=== PATIENT | female | born 1955 | race Caucasian/White ===

== ENCOUNTER 2022-01-28 07:21 | Inpatient (IN) ==
[2022-01-28] MEDS ORDERED: *HR* HYDROcodone/Acet 5/325 mg TABLET PO ONE (08:04)
[2022-01-28 08:38] LABS: Basophils # 0.1 K/mcL (0.0-0.2); Basophils % 0.4 %; Eosinophils # 0.2 K/mcL (0.0-0.6); Eosinophils % 1.5 %; Hematocrit 29.8 % (35.3-44.9); Hemoglobin 9.8 g/dL (11.5-15.4); Immature Granulocytes % 0.4 % (0-4); Lymphocytes # 1.7 K/mcL (0.6-4.6); Lymphocytes % 12.1 %; Mean Corpuscular HGB Conc 32.9 g/dL (31.6-35.5); Mean Corpuscular Hemoglobin 24.8 pg (28.0-33.3); Mean Corpuscular Volume 75.4 fL (83.0-100.0); Mean Platelet Volume 10.2 fL (9.4-12.4); Monocytes # 1.4 K/mcL (0.0-1.3); Monocytes % 9.9 %; Neutrophils # 10.5 K/mcL (1.6-8.9); Platelet Count 244 K/mcL (140-400); Red Blood Count 3.95 M/mcL (3.82-4.97); Red Cell Distribution Width 15.6 % (11.5-14.5); Segmented Neutrophils % 75.7 %; White Blood Count 13.9 K/mcL (4.3-11.1)
[2022-01-28 08:58] LABS: Troponin I < 0.03 ng/mL (< 0.04)
[2022-01-28 09:00] LABS: Alanine Aminotransferase 6 Units/L (7-52); Albumin 2.9 g/dL (3.5-5.7); Albumin/Globulin Ratio 0.9 (1.1-2.2); Alkaline Phosphatase 87 Units/L (34-104); Aspartate Amino Transferase 7 Units/L (13-39); BUN/Creatinine Ratio 28 (6-26); Bilirubin,Total 0.6 mg/dL (0.3-1.0); Blood Urea Nitrogen 18 mg/dL (8-23); Carbon Dioxide 24 mEq/L (23-29); Chloride 92 mEq/L (98-107); Globulin 3.2 g/dL (2.4-3.5); Glucose 307 mg/dL (70-105); Osmolality,Calculated 277 (280-300); Potassium 4.2 mEq/L (3.5-5.1); Sodium 127 mEq/L (136-145); Total Protein 6.1 g/dL (6.4-8.9)
[2022-01-28 09:20] LABS: Bilirubin,Urine Negative (Negative); Blood,Urine Trace-intact (Negative); Clarity,Urine Turbid (Clear); Color,Urine Yellow (Yellow); Glucose,Urine (UA) Normal (Normal); Ketones,Urine 15 mg/dL (Negative); Leukocyte Esterase,Urine Large (Negative); Nitrite,Urine Positive (Negative); Protein,Urine 30 mg/dL (Neg-Trace); Urobilinogen,Urine Normal (Normal)
[2022-01-28 09:30] LABS: ABG Base Excess 0 mEq/L (-2 to 3); ABG HCO3 25 mEq/L (21-27); ABG Oxygen Saturation 81 % (95-98); ABG PCO2 40 mmHg (35-45); ABG PO2 45 mmHg (85-104); ABG TCO2 26 mEq/L (20-26)
[2022-01-28 09:34] LABS: Squamous Epithelial Cell,Urine Few per hpf (None-Few); WBC,Urine TNTC per hpf (0-3)
[2022-01-28 09:35] LABS: Bacteria,Urine Many per hpf (None-Few); Renal Epithelial Cells,Urine Moderate per hpf (None-Few)
[2022-01-28] MEDS ORDERED: cefTRIAXone 2,000 MG in 0.9 % Sodium Chloride Mini Bag 100 ML IVPB ONE (09:37)
[2022-01-28] MEDS ORDERED: 0.9 % Sodium Chloride 500 ML IVC ONE (09:37)
[2022-01-28] MEDS ORDERED: 0.9 % Sodium Chloride 1,000 ML IVC SCH (09:45)
[2022-01-28] MEDS ORDERED: Naloxone 0.4 MG/ML INJ IVP PRN (11:43)
[2022-01-28] MEDS ORDERED: D5% in Water 1,000 ML IVC PRN (11:45)
[2022-01-28] MEDS ORDERED: *HR* Dextrose 50 % in Water (Syg) 50 ML SYRINGE IVP PRN (11:45)
[2022-01-28] MEDS ORDERED: Dextrose Gel 15 GM/37.5 ML TUBE PO PRN ×2 (11:45)
[2022-01-28] MEDS: Azithromycin 500 MG in 0.9 % Sodium Chloride 250 ML IVPB SCH (13:11)
[2022-01-28] MEDS: Insulin LISPRO 300 UNITS/3 ML VIAL SUBQ SCH ×2 (16:39→21:17)
[2022-01-28] MEDS: valACYclovir 500 MG TABLET PO SCH ×2 (21:07→21:14)
[2022-01-28] MEDS ORDERED: Acetaminophen 325 MG TABLET PO ONE (21:24)
[2022-01-29 04:51] LABS: Basophils # 0.1 K/mcL (0.0-0.2); Basophils % 0.5 %; Hematocrit 33.2 % (35.3-44.9); Hemoglobin 10.5 g/dL (11.5-15.4); Lymphocytes # 1.8 K/mcL (0.6-4.6); Mean Corpuscular HGB Conc 31.6 g/dL (31.6-35.5); Mean Corpuscular Hemoglobin 24.4 pg (28.0-33.3); Mean Corpuscular Volume 77.2 fL (83.0-100.0); Mean Platelet Volume 10.5 fL (9.4-12.4); Monocytes # 1.1 K/mcL (0.0-1.3); Red Cell Distribution Width 15.8 % (11.5-14.5); White Blood Count 10.9 K/mcL (4.3-11.1)
[2022-01-29] MEDS: *HR* Enoxaparin 40 MG/0.4 ML SYRINGE SQ SCH (05:32)
[2022-01-29 05:48] LABS: Thyroid Stimulating Hormone 1.595 mcIU/mL (0.340-5.600)
[2022-01-29 07:24] LABS: Platelet Count 230 K/mcL (140-400)
[2022-01-29 07:53] LABS: Eosinophils # 0.3 K/mcL (0.0-0.6); Eosinophils % 2.7 %; Immature Granulocytes % 0.4 % (0-4); Lymphocytes % 16.9 %; Monocytes % 10.3 %; Segmented Neutrophils % 69.2 %
[2022-01-29 08:04] LABS: Neutrophils # 7.5 K/mcL (1.6-8.9)
[2022-01-29 08:32] LABS: Alanine Aminotransferase 8 Units/L (7-52); Albumin/Globulin Ratio 0.9 (1.1-2.2); Alkaline Phosphatase 110 Units/L (34-104); Aspartate Amino Transferase 13 Units/L (13-39); BUN/Creatinine Ratio 19 (6-26); Bilirubin,Total 0.4 mg/dL (0.3-1.0); Blood Urea Nitrogen 13 mg/dL (8-23); Calcium 8.3 mg/dL (8.6-10.3); Carbon Dioxide 20 mEq/L (23-29); Chloride 98 mEq/L (98-107); Chol/HDL Ratio 3.2 (0-4.9); Cholesterol 81 mg/dL (< 200); Globulin 3.3 g/dL (2.4-3.5); Glucose 235 mg/dL (70-105); HDL Cholesterol 25 mg/dL (40-59); LDL Cholesterol,Calculated 38 mg/dL (< 100); Magnesium 1.2 mg/dL (1.6-2.6); Osmolality,Calculated 284 (280-300); Potassium 4.1 mEq/L (3.5-5.1); Sodium 133 mEq/L (136-145); Total Protein 6.3 g/dL (6.4-8.9); Triglycerides 88 mg/dL (< 150)
[2022-01-29] MEDS: Cholecalciferol (D-3) 1,000 UNIT (25MCG) TABLET PO SCH (08:35)
[2022-01-29] MEDS: valACYclovir 500 MG TABLET PO SCH ×3 (08:36→20:27)
[2022-01-29] MEDS: Cyanocobalamin (B-12) 1,000 MCG TABLET PO SCH (08:36)
[2022-01-29] MEDS: cefTRIAXone 1,000 MG in 0.9 % Sodium Chloride Mini Bag 100 ML IVPB SCH (08:36)
[2022-01-29] MEDS: atenoloL 50 MG TABLET PO SCH (08:36)
[2022-01-29] MEDS: Insulin LISPRO 300 UNITS/3 ML VIAL SUBQ SCH ×4 (09:10→22:39)
[2022-01-29 09:25] LABS: Folate > 22.3 ng/mL (3.0-16.0); Vitamin B12 > 1500 pg/mL (250-1100)
[2022-01-29] MEDS: Azithromycin 500 MG in 0.9 % Sodium Chloride 250 ML IVPB SCH (12:43)
[2022-01-29] MEDS: *HR* HYDROcodone/Acet 5/325 mg TABLET PO PRN ×2 (14:22→20:34)
[2022-01-30] MEDS: *HR* Enoxaparin 40 MG/0.4 ML SYRINGE SQ SCH (05:38)
[2022-01-30] MEDS: valACYclovir 500 MG TABLET PO SCH ×3 (08:34→21:16)
[2022-01-30] MEDS: Cholecalciferol (D-3) 1,000 UNIT (25MCG) TABLET PO SCH (08:35)
[2022-01-30] MEDS: Cyanocobalamin (B-12) 1,000 MCG TABLET PO SCH (08:35)
[2022-01-30] MEDS: cefTRIAXone 1,000 MG in 0.9 % Sodium Chloride Mini Bag 100 ML IVPB SCH (08:35)
[2022-01-30] MEDS: atenoloL 50 MG TABLET PO SCH (08:35)
[2022-01-30] MEDS: Insulin LISPRO 300 UNITS/3 ML VIAL SUBQ SCH ×3 (08:48→16:44)
[2022-01-30] MEDS: *HR* HYDROcodone/Acet 5/325 mg TABLET PO PRN ×2 (08:59→21:22)
[2022-01-30 09:06] LABS: Basophils % 0.4 %; Eosinophils # 0.3 K/mcL (0.0-0.6); Eosinophils % 3.4 %; Hematocrit 28.9 % (35.3-44.9); Hemoglobin 9.4 g/dL (11.5-15.4); Immature Granulocytes % 0.8 % (0-4); Lymphocytes # 1.8 K/mcL (0.6-4.6); Lymphocytes % 19.8 %; Mean Corpuscular HGB Conc 32.5 g/dL (31.6-35.5); Mean Corpuscular Hemoglobin 24.8 pg (28.0-33.3); Mean Corpuscular Volume 76.3 fL (83.0-100.0); Mean Platelet Volume 10.1 fL (9.4-12.4); Monocytes # 0.9 K/mcL (0.0-1.3); Monocytes % 10.4 %; Neutrophils # 5.8 K/mcL (1.6-8.9); Platelet Count 307 K/mcL (140-400); Red Blood Count 3.79 M/mcL (3.82-4.97); Red Cell Distribution Width 15.8 % (11.5-14.5); Segmented Neutrophils % 65.2 %; White Blood Count 8.9 K/mcL (4.3-11.1)
[2022-01-30 09:18] LABS: BUN/Creatinine Ratio 17 (6-26); Blood Urea Nitrogen 10 mg/dL (8-23); Calcium 7.8 mg/dL (8.6-10.3); Carbon Dioxide 25 mEq/L (23-29); Chloride 98 mEq/L (98-107); Glucose 252 mg/dL (70-105); Magnesium 1.4 mg/dL (1.6-2.6); Osmolality,Calculated 284 (280-300); Sodium 133 mEq/L (136-145)
[2022-01-30] MEDS ORDERED: polyethylene glycoL 3350 17 GM POWD.PACK PO PRN (11:06)
[2022-01-30] MEDS: Azithromycin 500 MG in 0.9 % Sodium Chloride 250 ML IVPB SCH (12:21)
[2022-01-31] MEDS: Insulin LISPRO 300 UNITS/3 ML VIAL SUBQ SCH ×5 (05:27→20:42)
[2022-01-31] MEDS: *HR* Enoxaparin 40 MG/0.4 ML SYRINGE SQ SCH (05:30)
[2022-01-31 08:24] LABS: Basophils # 0.1 K/mcL (0.0-0.2); Basophils % 0.8 %; Eosinophils # 0.3 K/mcL (0.0-0.6); Eosinophils % 3.8 %; Hematocrit 31.2 % (35.3-44.9); Hemoglobin 9.8 g/dL (11.5-15.4); Immature Granulocytes % 0.8 % (0-4); Lymphocytes % 25.5 %; Mean Corpuscular HGB Conc 31.4 g/dL (31.6-35.5); Mean Corpuscular Hemoglobin 24.5 pg (28.0-33.3); Mean Platelet Volume 9.6 fL (9.4-12.4); Monocytes # 0.9 K/mcL (0.0-1.3); Monocytes % 10.7 %; Neutrophils # 4.6 K/mcL (1.6-8.9); Platelet Count 343 K/mcL (140-400); Red Cell Distribution Width 15.8 % (11.5-14.5); Segmented Neutrophils % 58.4 %; White Blood Count 7.9 K/mcL (4.3-11.1)
[2022-01-31 09:04] LABS: BUN/Creatinine Ratio 15 (6-26); Blood Urea Nitrogen 8 mg/dL (8-23); Calcium 7.9 mg/dL (8.6-10.3); Carbon Dioxide 27 mEq/L (23-29); Chloride 101 mEq/L (98-107); Glucose 209 mg/dL (70-105); Osmolality,Calculated 286 (280-300); Sodium 136 mEq/L (136-145)
[2022-01-31] MEDS: atenoloL 50 MG TABLET PO SCH (09:22)
[2022-01-31] MEDS: Cholecalciferol (D-3) 1,000 UNIT (25MCG) TABLET PO SCH (09:22)
[2022-01-31] MEDS: valACYclovir 500 MG TABLET PO SCH ×3 (09:22→21:02)
[2022-01-31] MEDS: cefTRIAXone 1,000 MG in 0.9 % Sodium Chloride Mini Bag 100 ML IVPB SCH (09:23)
[2022-01-31] MEDS: Cyanocobalamin (B-12) 1,000 MCG TABLET PO SCH (09:23)
[2022-01-31] MEDS: *HR* HYDROcodone/Acet 5/325 mg TABLET PO PRN ×2 (09:35→16:00)
[2022-01-31] MEDS: Azithromycin 500 MG in 0.9 % Sodium Chloride 250 ML IVPB SCH (11:50)
[2022-02-01] MEDS: *HR* Enoxaparin 40 MG/0.4 ML SYRINGE SQ SCH (05:41)
[2022-02-01] MEDS: cefTRIAXone 1,000 MG in 0.9 % Sodium Chloride Mini Bag 100 ML IVPB SCH (08:03)
[2022-02-01] MEDS: atenoloL 50 MG TABLET PO SCH (08:04)
[2022-02-01] MEDS: valACYclovir 500 MG TABLET PO SCH ×3 (08:04→19:43)
[2022-02-01] MEDS: Cyanocobalamin (B-12) 1,000 MCG TABLET PO SCH (08:04)
[2022-02-01] MEDS: Cholecalciferol (D-3) 1,000 UNIT (25MCG) TABLET PO SCH (08:05)
[2022-02-01] MEDS: Insulin LISPRO 300 UNITS/3 ML VIAL SUBQ SCH ×4 (08:07→19:44)
[2022-02-01] MEDS: *HR* HYDROcodone/Acet 5/325 mg TABLET PO PRN ×3 (09:12→21:54)
[2022-02-01] MEDS: Azithromycin 500 MG in 0.9 % Sodium Chloride 250 ML IVPB SCH (12:50)
[2022-02-02] MEDS: *HR* Enoxaparin 40 MG/0.4 ML SYRINGE SQ SCH (05:15)
[2022-02-02 07:07] LABS: Basophils # 0.1 K/mcL (0.0-0.2); Basophils % 1.1 %; Eosinophils # 0.3 K/mcL (0.0-0.6); Eosinophils % 3.4 %; Hematocrit 31.1 % (35.3-44.9); Hemoglobin 9.8 g/dL (11.5-15.4); Lymphocytes # 1.9 K/mcL (0.6-4.6); Mean Corpuscular HGB Conc 31.5 g/dL (31.6-35.5); Mean Corpuscular Hemoglobin 24.4 pg (28.0-33.3); Mean Corpuscular Volume 77.6 fL (83.0-100.0); Mean Platelet Volume 9.6 fL (9.4-12.4); Monocytes # 1.2 K/mcL (0.0-1.3); Monocytes % 13.9 %; Neutrophils # 4.6 K/mcL (1.6-8.9); Platelet Count 396 K/mcL (140-400); Red Blood Count 4.01 M/mcL (3.82-4.97); Red Cell Distribution Width 15.9 % (11.5-14.5); Segmented Neutrophils % 55.6 %; White Blood Count 8.3 K/mcL (4.3-11.1)
[2022-02-02 07:31] LABS: BUN/Creatinine Ratio 14 (6-26); Blood Urea Nitrogen 8 mg/dL (8-23); Calcium 8.4 mg/dL (8.6-10.3); Carbon Dioxide 29 mEq/L (23-29); Chloride 100 mEq/L (98-107); Glucose 212 mg/dL (70-105); Magnesium 1.3 mg/dL (1.6-2.6); Osmolality,Calculated 287 (280-300); Sodium 136 mEq/L (136-145)
[2022-02-02] MEDS: Cholecalciferol (D-3) 1,000 UNIT (25MCG) TABLET PO SCH (08:01)
[2022-02-02] MEDS: Cyanocobalamin (B-12) 1,000 MCG TABLET PO SCH (08:01)
[2022-02-02] MEDS: valACYclovir 500 MG TABLET PO SCH ×3 (08:01→20:18)
[2022-02-02] MEDS: atenoloL 50 MG TABLET PO SCH (08:02)
[2022-02-02] MEDS: *HR* HYDROcodone/Acet 5/325 mg TABLET PO PRN ×3 (08:05→23:33)
[2022-02-02] MEDS: Insulin LISPRO 300 UNITS/3 ML VIAL SUBQ SCH ×4 (08:15→20:47)
[2022-02-03] MEDS: *HR* Enoxaparin 40 MG/0.4 ML SYRINGE SQ SCH (04:55)
[2022-02-03 07:47] LABS: Basophils # 0.1 K/mcL (0.0-0.2); Basophils % 1.3 %; Eosinophils # 0.3 K/mcL (0.0-0.6); Eosinophils % 3.7 %; Hemoglobin 9.7 g/dL (11.5-15.4); Immature Granulocytes % 4.1 % (0-4); Lymphocytes % 28.4 %; Mean Corpuscular HGB Conc 31.3 g/dL (31.6-35.5); Mean Corpuscular Hemoglobin 24.5 pg (28.0-33.3); Mean Corpuscular Volume 78.3 fL (83.0-100.0); Mean Platelet Volume 9.8 fL (9.4-12.4); Monocytes # 0.9 K/mcL (0.0-1.3); Neutrophils # 3.6 K/mcL (1.6-8.9); Platelet Count 457 K/mcL (140-400); Red Blood Count 3.96 M/mcL (3.82-4.97); Red Cell Distribution Width 15.8 % (11.5-14.5); Segmented Neutrophils % 50.5 %; White Blood Count 7.1 K/mcL (4.3-11.1)
[2022-02-03 08:07] LABS: BUN/Creatinine Ratio 15 (6-26); Blood Urea Nitrogen 8 mg/dL (8-23); Calcium 8.6 mg/dL (8.6-10.3); Carbon Dioxide 28 mEq/L (23-29); Chloride 100 mEq/L (98-107); Glucose 187 mg/dL (70-105); Osmolality,Calculated 287 (280-300); Sodium 137 mEq/L (136-145)
[2022-02-03 08:51] LABS: C-Reactive Protein 72 mg/L (Less than 10)
[2022-02-03] MEDS: Insulin LISPRO 300 UNITS/3 ML VIAL SUBQ SCH ×4 (10:05→21:08)
[2022-02-03] MEDS: atenoloL 50 MG TABLET PO SCH (10:05)
[2022-02-03] MEDS: Cholecalciferol (D-3) 1,000 UNIT (25MCG) TABLET PO SCH (10:05)
[2022-02-03] MEDS: Cyanocobalamin (B-12) 1,000 MCG TABLET PO SCH (10:05)
[2022-02-03] MEDS: valACYclovir 500 MG TABLET PO SCH ×3 (10:05→21:08)
[2022-02-03] MEDS: *HR* HYDROcodone/Acet 5/325 mg TABLET PO PRN ×3 (10:53→22:43)
[2022-02-04] MEDS: *HR* Enoxaparin 40 MG/0.4 ML SYRINGE SQ SCH (05:45)
[2022-02-04] MEDS: valACYclovir 500 MG TABLET PO SCH ×3 (07:54→20:30)
[2022-02-04] MEDS: Cyanocobalamin (B-12) 1,000 MCG TABLET PO SCH (07:54)
[2022-02-04] MEDS: *HR* HYDROcodone/Acet 5/325 mg TABLET PO PRN ×2 (07:54→18:25)
[2022-02-04] MEDS: Insulin LISPRO 300 UNITS/3 ML VIAL SUBQ SCH ×4 (07:55→19:54)
[2022-02-04] MEDS: Cholecalciferol (D-3) 1,000 UNIT (25MCG) TABLET PO SCH (07:55)
[2022-02-04] MEDS: atenoloL 50 MG TABLET PO SCH (07:55)
[2022-02-04 08:08] LABS: Basophils # 0.1 K/mcL (0.0-0.2); Basophils % 1.2 %; Eosinophils # 0.3 K/mcL (0.0-0.6); Eosinophils % 4.4 %; Hematocrit 30.8 % (35.3-44.9); Immature Granulocytes % 4.1 % (0-4); Lymphocytes % 29.5 %; Mean Corpuscular HGB Conc 32.5 g/dL (31.6-35.5); Mean Corpuscular Hemoglobin 25.2 pg (28.0-33.3); Mean Corpuscular Volume 77.6 fL (83.0-100.0); Mean Platelet Volume 9.7 fL (9.4-12.4); Monocytes # 0.8 K/mcL (0.0-1.3); Neutrophils # 3.4 K/mcL (1.6-8.9); Platelet Count 480 K/mcL (140-400); Red Blood Count 3.97 M/mcL (3.82-4.97); Red Cell Distribution Width 15.7 % (11.5-14.5); Segmented Neutrophils % 49.8 %; White Blood Count 6.8 K/mcL (4.3-11.1)
[2022-02-04 08:25] LABS: BUN/Creatinine Ratio 30 (6-26); Blood Urea Nitrogen 16 mg/dL (8-23); Calcium 8.9 mg/dL (8.6-10.3); Carbon Dioxide 29 mEq/L (23-29); Chloride 98 mEq/L (98-107); Glucose 198 mg/dL (70-105); Magnesium 1.3 mg/dL (1.6-2.6); Osmolality,Calculated 289 (280-300); Sodium 136 mEq/L (136-145)
[2022-02-05 04:29] VITALS: RESP 17
[2022-02-05] MEDS: *HR* Enoxaparin 40 MG/0.4 ML SYRINGE SQ SCH (05:39)
[2022-02-05] MEDS: *HR* HYDROcodone/Acet 5/325 mg TABLET PO PRN ×2 (05:48→12:34)
[2022-02-05 07:37] VITALS: TEMP 97.8; O2SAT 94
[2022-02-05] MEDS: Cholecalciferol (D-3) 1,000 UNIT (25MCG) TABLET PO SCH (07:57)
[2022-02-05] MEDS: atenoloL 50 MG TABLET PO SCH (07:57)
[2022-02-05] MEDS: Cyanocobalamin (B-12) 1,000 MCG TABLET PO SCH (07:57)
[2022-02-05] MEDS: valACYclovir 500 MG TABLET PO SCH ×2 (07:57→15:40)
[2022-02-05] MEDS: Insulin LISPRO 300 UNITS/3 ML VIAL SUBQ SCH ×3 (08:02→16:26)
[2022-02-05 08:33] LABS: Basophils # 0.1 K/mcL (0.0-0.2); Basophils % 1.2 %; Eosinophils # 0.3 K/mcL (0.0-0.6); Eosinophils % 3.5 %; Hematocrit 33.2 % (35.3-44.9); Hemoglobin 10.6 g/dL (11.5-15.4); Immature Granulocytes % 4.2 % (0-4); Lymphocytes # 2.4 K/mcL (0.6-4.6); Lymphocytes % 32.3 %; Mean Corpuscular HGB Conc 31.9 g/dL (31.6-35.5); Mean Corpuscular Hemoglobin 25.1 pg (28.0-33.3); Mean Corpuscular Volume 78.5 fL (83.0-100.0); Mean Platelet Volume 9.3 fL (9.4-12.4); Monocytes # 0.8 K/mcL (0.0-1.3); Monocytes % 10.3 %; Neutrophils # 3.6 K/mcL (1.6-8.9); Platelet Count 494 K/mcL (140-400); Red Blood Count 4.23 M/mcL (3.82-4.97); Red Cell Distribution Width 16.1 % (11.5-14.5); Segmented Neutrophils % 48.5 %; White Blood Count 7.5 K/mcL (4.3-11.1)
[2022-02-05 08:51] LABS: BUN/Creatinine Ratio 33 (6-26); Blood Urea Nitrogen 18 mg/dL (8-23); Calcium 9.2 mg/dL (8.6-10.3); Carbon Dioxide 30 mEq/L (23-29); Chloride 98 mEq/L (98-107); Glucose 220 mg/dL (70-105); Magnesium 1.4 mg/dL (1.6-2.6); Osmolality,Calculated 295 (280-300); Potassium 3.9 mEq/L (3.5-5.1); Sodium 138 mEq/L (136-145)
[2022-02-05] MEDS ORDERED: amLODIPine 5 MG TABLET PO SCH (09:00)
[2022-02-05] MEDS ORDERED: Magnesium Oxide 400 MG TABLET PO SCH (09:00)
[2022-02-05 09:02] VITALS: BP 153/71; PULSE 66
[2022-02-06] MEDS ORDERED: Magnesium Oxide 400 MG TABLET PO SCH (09:00)
== END 2022-02-05 17:14 | disposition other institution (70) | DRG 640 ==
LOC: EMEROOPIK 07:21 → INPPIK 07:21 → SUATTDRO 01-30 16:55 → INPPIK 02-03 12:57
PROVIDERS: ADMIT Internal Medicine; ATTEND Family Medicine

== ENCOUNTER 2022-02-05 17:39 | Inpatient (IN) ==
[2022-02-05] MEDS ORDERED: polyethylene glycoL 3350 17 GM POWD.PACK PO PRN (18:31)
[2022-02-05] MEDS ORDERED: D5% in Water 1,000 ML IVC PRN (18:33)
[2022-02-05] MEDS ORDERED: *HR* Dextrose 50 % in Water (Syg) 50 ML SYRINGE IVP PRN (18:33)
[2022-02-05] MEDS ORDERED: Dextrose Gel 15 GM/37.5 ML TUBE PO PRN ×2 (18:33)
[2022-02-05] MEDS: *HR* HYDROcodone/Acet 5/325 mg TABLET PO PRN (20:33)
[2022-02-05] MEDS: valACYclovir 500 MG TABLET PO SCH (20:33)
[2022-02-05] MEDS: Insulin LISPRO 300 UNITS/3 ML VIAL SUBQ SCH (20:35)
[2022-02-06] MEDS: *HR* HYDROcodone/Acet 5/325 mg TABLET PO PRN ×3 (04:08→22:32)
[2022-02-06 07:37] LABS: Basophils # 0.1 K/mcL (0.0-0.2); Basophils % 1.3 %; Eosinophils # 0.3 K/mcL (0.0-0.6); Eosinophils % 3.7 %; Hematocrit 31.8 % (35.3-44.9); Hemoglobin 9.9 g/dL (11.5-15.4); Immature Granulocytes % 3.8 % (0-4); Lymphocytes # 2.3 K/mcL (0.6-4.6); Lymphocytes % 32.3 %; Mean Corpuscular HGB Conc 31.1 g/dL (31.6-35.5); Mean Corpuscular Hemoglobin 24.6 pg (28.0-33.3); Mean Corpuscular Volume 79.1 fL (83.0-100.0); Mean Platelet Volume 9.5 fL (9.4-12.4); Monocytes # 0.7 K/mcL (0.0-1.3); Monocytes % 9.3 %; Neutrophils # 3.5 K/mcL (1.6-8.9); Platelet Count 481 K/mcL (140-400); Red Blood Count 4.02 M/mcL (3.82-4.97); Red Cell Distribution Width 16.3 % (11.5-14.5); Segmented Neutrophils % 49.6 %; White Blood Count 7.1 K/mcL (4.3-11.1)
[2022-02-06 07:49] LABS: BUN/Creatinine Ratio 33 (6-26); Blood Urea Nitrogen 22 mg/dL (8-23); Carbon Dioxide 30 mEq/L (23-29); Chloride 98 mEq/L (98-107); Glucose 222 mg/dL (70-105); Osmolality,Calculated 294 (280-300); Potassium 3.9 mEq/L (3.5-5.1); Sodium 137 mEq/L (136-145)
[2022-02-06] MEDS ORDERED: Magnesium Oxide 400 MG TABLET PO SCH (09:00)
[2022-02-06] MEDS: amLODIPine 5 MG TABLET PO SCH (09:23)
[2022-02-06] MEDS: valACYclovir 500 MG TABLET PO SCH ×3 (09:23→20:01)
[2022-02-06] MEDS: atenoloL 50 MG TABLET PO SCH (09:24)
[2022-02-06] MEDS: Insulin LISPRO 300 UNITS/3 ML VIAL SUBQ SCH ×4 (09:24→20:02)
[2022-02-06] MEDS: Cholecalciferol (D-3) 1,000 UNIT (25MCG) TABLET PO SCH (09:24)
[2022-02-06] MEDS: Cyanocobalamin (B-12) 1,000 MCG TABLET PO SCH (09:24)
[2022-02-06] MEDS: *HR* Metformin 500 MG TABLET PO SCH ×2 (09:24→16:13)
[2022-02-06] MEDS: Lactobacillus 1 EACH CAP.SPRINK PO SCH (16:33)
[2022-02-06] MEDS: Magnesium Oxide 400 MG TABLET PO SCH (20:05)
[2022-02-06] MEDS: *HR* Heparin 5,000 UNIT/ML VIAL SQ SCH (22:32)
[2022-02-07] MEDS: *HR* Heparin 5,000 UNIT/ML VIAL SQ SCH ×3 (05:56→20:20)
[2022-02-07] MEDS: Insulin LISPRO 300 UNITS/3 ML VIAL SUBQ SCH ×5 (07:22→20:21)
[2022-02-07] MEDS: *HR* Metformin 500 MG TABLET PO SCH ×2 (08:13→15:40)
[2022-02-07] MEDS: Cyanocobalamin (B-12) 1,000 MCG TABLET PO SCH (08:13)
[2022-02-07] MEDS: atenoloL 50 MG TABLET PO SCH (08:14)
[2022-02-07] MEDS: Magnesium Oxide 400 MG TABLET PO SCH ×2 (08:14→20:20)
[2022-02-07] MEDS: Cholecalciferol (D-3) 1,000 UNIT (25MCG) TABLET PO SCH (08:14)
[2022-02-07] MEDS: amLODIPine 5 MG TABLET PO SCH (08:14)
[2022-02-07] MEDS: Lactobacillus 1 EACH CAP.SPRINK PO SCH (08:14)
[2022-02-07] MEDS: valACYclovir 500 MG TABLET PO SCH ×3 (08:14→20:19)
[2022-02-07] MEDS: *HR* HYDROcodone/Acet 5/325 mg TABLET PO PRN ×2 (15:41→22:27)
[2022-02-08 00:18] LABS: Adenovirus F 40/41 PCR Not detected (Not detect); Astrovirus PCR Not detected (Not detect); C.difficile Toxin A/B Gene PCR Not detected (Not detect); Campylobacter by PCR Not detected (Not detect); Cryptosporidium by PCR Not detected (Not detect); Cyclospora cayetanensis PCR Not detected (Not detect); Entamoeba histolytica PCR Not detected (Not detect); Enteroaggregative E.coli(EAEC) Not detected (Not detect); Enteropathogenic E.coli(EPEC) Not detected (Not detect); Enterotoxigenic E.coli (ETEC) Not detected (Not detect); Giardia lamblia PCR Not detected (Not detect); Norovirus GI/GII PCR Not detected (Not detect); Plesiomonas shigelloides PCR Not detected (Not detect); Rotavirus A PCR Not detected (Not detect); Salmonella PCR Not detected (Not detect); Sapovirus PCR Not detected (Not detect); Shig/EnteroinvasiveE coli EIEC Not detected (Not detect); Shigalike tox-prod E coli STEC Not detected (Not detect); Vibrio PCR Not detected (Not detect); Vibrio cholerae PCR Not detected (Not detect); Yersinia enterocolitica PCR Not detected (Not detect)
[2022-02-08] MEDS: *HR* Heparin 5,000 UNIT/ML VIAL SQ SCH ×3 (06:15→20:12)
[2022-02-08] MEDS: Cholecalciferol (D-3) 1,000 UNIT (25MCG) TABLET PO SCH (08:05)
[2022-02-08] MEDS: atenoloL 50 MG TABLET PO SCH (08:05)
[2022-02-08] MEDS: Lactobacillus 1 EACH CAP.SPRINK PO SCH (08:05)
[2022-02-08] MEDS: amLODIPine 5 MG TABLET PO SCH (08:05)
[2022-02-08] MEDS: *HR* Metformin 500 MG TABLET PO SCH ×2 (08:05→17:33)
[2022-02-08] MEDS: valACYclovir 500 MG TABLET PO SCH ×2 (08:05→15:54)
[2022-02-08] MEDS: Magnesium Oxide 400 MG TABLET PO SCH ×2 (08:05→20:12)
[2022-02-08] MEDS: Cyanocobalamin (B-12) 1,000 MCG TABLET PO SCH (08:05)
[2022-02-08] MEDS: *HR* HYDROcodone/Acet 5/325 mg TABLET PO PRN ×2 (08:13→20:12)
[2022-02-08] MEDS: Insulin LISPRO 300 UNITS/3 ML VIAL SUBQ SCH ×4 (08:13→20:12)
[2022-02-08] MEDS: Ondansetron 4 MG/2 ML VIAL IVP PRN (08:18)
[2022-02-09] MEDS: *HR* Heparin 5,000 UNIT/ML VIAL SQ SCH ×3 (06:34→21:12)
[2022-02-09 06:57] LABS: Hematocrit 35.7 % (35.3-44.9); Mean Corpuscular HGB Conc 30.8 g/dL (31.6-35.5); Mean Corpuscular Hemoglobin 25.1 pg (28.0-33.3); Mean Corpuscular Volume 81.3 fL (83.0-100.0); Mean Platelet Volume 9.6 fL (9.4-12.4); Platelet Count 386 K/mcL (140-400); Red Blood Count 4.39 M/mcL (3.82-4.97); Red Cell Distribution Width 17.3 % (11.5-14.5); White Blood Count 8.8 K/mcL (4.3-11.1)
[2022-02-09 07:05] LABS: BUN/Creatinine Ratio 26 (6-26); Blood Urea Nitrogen 16 mg/dL (8-23); Calcium 9.4 mg/dL (8.6-10.3); Carbon Dioxide 30 mEq/L (23-29); Chloride 99 mEq/L (98-107); Glucose 191 mg/dL (70-105); Magnesium 1.5 mg/dL (1.6-2.6); Osmolality,Calculated 290 (280-300); Sodium 137 mEq/L (136-145)
[2022-02-09] MEDS: Cyanocobalamin (B-12) 1,000 MCG TABLET PO SCH (08:40)
[2022-02-09] MEDS: atenoloL 50 MG TABLET PO SCH (08:40)
[2022-02-09] MEDS: Cholecalciferol (D-3) 1,000 UNIT (25MCG) TABLET PO SCH (08:40)
[2022-02-09] MEDS: amLODIPine 5 MG TABLET PO SCH (08:40)
[2022-02-09] MEDS: Lactobacillus 1 EACH CAP.SPRINK PO SCH (08:40)
[2022-02-09] MEDS: *HR* Metformin 500 MG TABLET PO SCH ×2 (08:40→17:26)
[2022-02-09] MEDS: Magnesium Oxide 400 MG TABLET PO SCH ×2 (08:40→20:21)
[2022-02-09] MEDS: Megestrol Acetate 400 MG/10 ML UDC PO SCH (08:40)
[2022-02-09] MEDS: *HR* HYDROcodone/Acet 5/325 mg TABLET PO PRN ×2 (09:02→20:22)
[2022-02-09] MEDS: Insulin LISPRO 300 UNITS/3 ML VIAL SUBQ SCH ×4 (09:03→20:22)
[2022-02-09] MEDS: Doxycycline 100 MG CAPSULE PO SCH (20:29)
[2022-02-10] MEDS: *HR* Heparin 5,000 UNIT/ML VIAL SQ SCH ×3 (05:37→20:21)
[2022-02-10] MEDS: Megestrol Acetate 400 MG/10 ML UDC PO SCH (07:39)
[2022-02-10] MEDS: Doxycycline 100 MG CAPSULE PO SCH ×2 (07:39→20:21)
[2022-02-10] MEDS: Cholecalciferol (D-3) 1,000 UNIT (25MCG) TABLET PO SCH (07:40)
[2022-02-10] MEDS: *HR* HYDROcodone/Acet 5/325 mg TABLET PO PRN ×2 (07:40→20:21)
[2022-02-10] MEDS: amLODIPine 5 MG TABLET PO SCH (07:40)
[2022-02-10] MEDS: Cyanocobalamin (B-12) 1,000 MCG TABLET PO SCH (07:40)
[2022-02-10] MEDS: atenoloL 50 MG TABLET PO SCH (07:40)
[2022-02-10] MEDS: *HR* Metformin 500 MG TABLET PO SCH ×2 (07:40→15:41)
[2022-02-10] MEDS: Magnesium Oxide 400 MG TABLET PO SCH ×2 (07:40→20:21)
[2022-02-10] MEDS: Lactobacillus 1 EACH CAP.SPRINK PO SCH (07:40)
[2022-02-10] MEDS: Insulin LISPRO 300 UNITS/3 ML VIAL SUBQ SCH ×4 (07:41→20:25)
[2022-02-11] MEDS: *HR* Heparin 5,000 UNIT/ML VIAL SQ SCH ×3 (05:16→23:33)
[2022-02-11] MEDS: Doxycycline 100 MG CAPSULE PO SCH ×2 (07:39→20:21)
[2022-02-11] MEDS: Magnesium Oxide 400 MG TABLET PO SCH ×2 (07:39→20:21)
[2022-02-11] MEDS: Cyanocobalamin (B-12) 1,000 MCG TABLET PO SCH (07:39)
[2022-02-11] MEDS: atenoloL 50 MG TABLET PO SCH (07:39)
[2022-02-11] MEDS: amLODIPine 5 MG TABLET PO SCH (07:39)
[2022-02-11] MEDS: Megestrol Acetate 400 MG/10 ML UDC PO SCH (07:39)
[2022-02-11] MEDS: *HR* Metformin 500 MG TABLET PO SCH ×2 (07:39→15:49)
[2022-02-11] MEDS: Lactobacillus 1 EACH CAP.SPRINK PO SCH (07:39)
[2022-02-11] MEDS: Cholecalciferol (D-3) 1,000 UNIT (25MCG) TABLET PO SCH (07:39)
[2022-02-11] MEDS: Insulin LISPRO 300 UNITS/3 ML VIAL SUBQ SCH ×4 (07:39→20:21)
[2022-02-11] MEDS: *HR* HYDROcodone/Acet 5/325 mg TABLET PO PRN (20:22)
[2022-02-12] MEDS: Ondansetron 4 MG/2 ML VIAL IVP PRN (00:39)
[2022-02-12] MEDS: *HR* Heparin 5,000 UNIT/ML VIAL SQ SCH ×3 (05:27→21:44)
[2022-02-12] MEDS: Megestrol Acetate 400 MG/10 ML UDC PO SCH (07:45)
[2022-02-12] MEDS: Magnesium Oxide 400 MG TABLET PO SCH ×2 (07:46→21:44)
[2022-02-12] MEDS: Lactobacillus 1 EACH CAP.SPRINK PO SCH (07:46)
[2022-02-12] MEDS: atenoloL 50 MG TABLET PO SCH (07:47)
[2022-02-12] MEDS: amLODIPine 5 MG TABLET PO SCH (07:47)
[2022-02-12] MEDS: Cyanocobalamin (B-12) 1,000 MCG TABLET PO SCH (07:47)
[2022-02-12] MEDS: Doxycycline 100 MG CAPSULE PO SCH ×2 (07:47→21:44)
[2022-02-12] MEDS: *HR* Metformin 500 MG TABLET PO SCH ×2 (07:47→16:50)
[2022-02-12] MEDS: Insulin LISPRO 300 UNITS/3 ML VIAL SUBQ SCH ×4 (07:48→21:45)
[2022-02-12] MEDS: Cholecalciferol (D-3) 1,000 UNIT (25MCG) TABLET PO SCH (11:58)
[2022-02-12] MEDS: *HR* HYDROcodone/Acet 5/325 mg TABLET PO PRN ×2 (14:58→21:43)
[2022-02-13] MEDS: *HR* Heparin 5,000 UNIT/ML VIAL SQ SCH (06:17)
[2022-02-13 07:35] VITALS: BP 150/77; PULSE 66; RESP 20; TEMP 97.8; O2SAT 94
[2022-02-13] MEDS: atenoloL 50 MG TABLET PO SCH (07:54)
[2022-02-13] MEDS: Cyanocobalamin (B-12) 1,000 MCG TABLET PO SCH (07:54)
[2022-02-13] MEDS: Doxycycline 100 MG CAPSULE PO SCH (07:54)
[2022-02-13] MEDS: Magnesium Oxide 400 MG TABLET PO SCH (07:54)
[2022-02-13] MEDS: Megestrol Acetate 400 MG/10 ML UDC PO SCH (07:54)
[2022-02-13] MEDS: Lactobacillus 1 EACH CAP.SPRINK PO SCH (07:54)
[2022-02-13] MEDS: amLODIPine 5 MG TABLET PO SCH (07:54)
[2022-02-13] MEDS: *HR* Metformin 500 MG TABLET PO SCH (07:55)
[2022-02-13] MEDS: *HR* HYDROcodone/Acet 5/325 mg TABLET PO PRN (07:55)
[2022-02-13] MEDS: Cholecalciferol (D-3) 1,000 UNIT (25MCG) TABLET PO SCH (07:55)
[2022-02-13] MEDS: Insulin LISPRO 300 UNITS/3 ML VIAL SUBQ SCH ×2 (07:56→12:30)
== END 2022-02-13 14:15 | DRG 689 ==
LOC: INPPIK 17:40
PROVIDERS: ADMIT Internal Medicine; ATTEND Internal Medicine